=== PATIENT | female | born 1980 | race Hispanic/Latino ===

== ENCOUNTER 2018-07-11 21:36 | Emergency (ER) | payer BC ==
--- NOTE | 2018-07-11 22:42 | ED PDOC ---
Arrival/HPI <Sen Grande - Last Filed: 07/11/18 23:56> - History of Present Illness Narrative History of Present Illness (Text): This is a 38 year old female with PMH of panic attacks who presents with chest pain since yesterday, with palpitations for the past 5 days. Pain is described as a pressure, which was right sided yesterday, but left sided chest pain today. Pt states that it feels like a "pulled muscle." Pt has had shortness of breath for the past 5 days, described as feeling the need to catch her breath. SOB is not worse on exertion, and she states mostly happens when she is sitting. Pt states that she usually doesn't have chest pain with her panic attacks. Endorses starting a new job recently with increased stress. Pt denies fever, chills, abdominal pain, n/v/d, recent travel, car rides greater than 4 hours, leg pain or swelling. Pt is not on OCPs. She has been doing a keto diet for the past 15 days. PMD: Condo PMH: anxiety with panic attacks PSH: breast augmentation 15 years ago Meds: None Allx: NKDA Social hx: (+) social etoh, denies smoking, drug use Time/Duration: Other (1 day) Symptom Onset: Sudden Symptom Course: Worsening Quality: Pressure <Chuy Dumont - Last Filed: 07/12/18 00:12> - General Chief Complaint: Palpitations Time Seen by Provider: 07/11/18 21:47 Past Medical History - Provider Review Nursing Documentation Reviewed: Yes - Infectious Disease Hx of Infectious Diseases: None - Psychiatric Hx Substance Use: No - Surgical History Other/Comment: Breast augmentation - Anesthesia Hx Anesthesia: Yes Hx Anesthesia Reactions: No Hx Malignant Hyperthermia: No <Chuy Dumont - Last Filed: 07/12/18 00:12> Family/Social History - Physician Review Nursing Documentation Reviewed: Yes Family/Social History: Unknown Family HX Smoking Status: Never Smoked Hx Alcohol Use: Yes Frequency of alcohol use: Socially Hx Substance Use: No <Chuy Dumont - Last Filed: 07/12/18 00:12> Allergies/Home Meds <Sen Grande - Last Filed: 07/11/18 23:56> <Chuy Dumont - Last Filed: 07/12/18 00:12> Allergies/Adverse Reactions: Allergies No Known Allergies Allergy (Verified 07/11/18 22:01) Home Medications: Home Meds Medication Instructions Recorded Confirmed No Known Home Med 07/11/18 07/11/18 Review of Systems - Review of Systems Constitutional: Normal Eyes: Normal ENT: Normal Respiratory: SOB Cardiovascular: Chest Pain, Palpitations. absent: Edema, Calf Pain, CANNON Gastrointestinal: Normal Genitourinary Female: Normal Musculoskeletal: Normal Skin: Normal Neurological: Normal Endocrine: Normal Hemo/Lymphatic: Normal Psychiatric: Normal <TimChuy - Last Filed: 07/12/18 00:12> Physical Exam Vital Signs Temp Pulse Resp BP Pulse Ox 07/11/18 21:53 98.3 F 82 18 112/79 97 <Sen Grande - Last Filed: 07/11/18 23:56> Vital Signs Reviewed: Yes Vital Signs Temp Pulse Resp BP Pulse Ox 07/11/18 21:53 98.3 F 82 18 112/79 97 Temperature: Afebrile Blood Pressure: Normal Pulse: Regular Respiratory Rate: Normal Appearance: Positive for: Well-Appearing, Non-Toxic Pain Distress: None Mental Status: Positive for: Alert and Oriented X 3 - Systems Exam Head: Present: Atraumatic, Normocephalic Extroacular Muscles: Present: EOMI Mouth: Present: Moist Mucous Membranes Respiratory/Chest: Present: Clear to Auscultation Cardiovascular: Present: Regular Rate and Rhythm, Normal S1, S2. No: Murmurs, Irregular Rhythm, Tachycardic Abdomen: Present: Normal Bowel Sounds. No: Tenderness, Distention Upper Extremity: Present: Normal Inspection, NORMAL PULSES, Capillary Refill < 2s. No: Edema Lower Extremity: Present: Normal Inspection, NORMAL PULSES, Capillary Refill < 2 s. No: Edema, CALF TENDERNESS, Tenderness, Swelling Neurological: Present: GCS=15 Skin: Present: Warm, Dry, Normal Color Psychiatric: Present: Alert, Oriented x 3, Anxious <RobetrtracyChuy - Last Filed: 07/12/18 00:12> Medical Decision Making ED Course and Treatment: Impression: Pt seen and evaluated with medical policy specialist big data solutions architect. Aware and agree with HPI, clinical findings, plan, and management. Pt, whose past medical history includes panics attacks, presented for chest pain, palpitations. Plan: -- EKG -- Chest X-ray -- Labs, cardiac enzymes, D-dimer -- Reassess and disposition - Lab Interpretations Lab Results: 07/11/18 22:35 Lab Results 07/11/18 22:35: Sodium 139, Potassium 3.8, Chloride 102, Carbon Dioxide 27, Anion Gap 13, BUN 16, Creatinine 0.8, Est GFR ( Amer) > 60, Est GFR (Non- Af Amer) > 60, Random Glucose 85, Calcium 9.5, Phosphorus 4.3, Magnesium 1.8, Total Bilirubin 0.2, AST 32, ALT 40, Alkaline Phosphatase 52, Lactate Dehydrogenase 418, Total Creatine Kinase 77, Troponin I Pending, Total Protein 7.5, Albumin 4.6, Globulin 2.9, Albumin/Globulin Ratio 1.6 - RAD Interpretation Radiology Orders: 07/11/18 22:51 CXR [CHEST PORTABLE] [RAD] Stat <Sen Grande - Last Filed: 07/11/18 23:56> ED Course and Treatment: 07/11/18 22:46 CBC, CMP, cardiac iso, EKG, CXR, d dimer. Will re-eval. 07/12/18 00:09 On re-evaluation, pt reports that she is feeling better. Pt reports that once she was told that she wasn't having a heart attack she started to feel better. Pt is not tachycardic, not dyspneic, no chest pain at this time. I instructed the pt that keto diet, or any other fad diet, is not medically advised and that regular cardio and eating healthy will provide her with the resulst that she wants. Pt instructed to follow up with her PMD within 2 weeks. Return to ED if symptoms worsen. Pt understands and agrees with discharge plan. Reassessment Condition: Re-examined, Improved - RAD Interpretation Narrative RAD Interpretations (Text): 07/11/18 23:16 CXR shows no acute process; as read by ED attending Computed Tomography Technologist: ED Physician - EKG Interpretation EKG Interpretation (Text): 07/11/18 22:47 EKg shows NSR at 86, no STTW changes; NE is 136, QTc is 442; as read by ED attending Interpreted by ED Physician: Yes <Chuy Dumont - Last Filed: 07/12/18 00:12> - PA / HYDROGRAPHIC ENGINEER / Resident Statement / has reviewed & agrees with the documentation as recorded. / has examined the patient and agrees with the treatment plan. <Sen Grande - Last Filed: 07/11/18 23:56> Disposition/Present on Arrival <Sen Grande - Last Filed: 07/11/18 23:56> - Present on Arrival Any Indicators Present on Arrival: No History of DVT/PE: No History of Uncontrolled Diabetes: No Urinary Catheter: No History of Decub. Ulcer: No History Surgical Site Infection Following: None - Disposition Have Diagnosis and Disposition been Completed?: Yes Disposition Time: 00:11 Patient Plan: Discharge <Chuy Dumont - Last Filed: 07/12/18 00:12> - Disposition Diagnosis: Chest pain in adult, Anxiety Disposition: HOME/ ROUTINE Condition: STABLE Discharge Instructions (ExitCare): Chest Pain That Is Not Caused by the Heart (DC), Anxiety, Adult (DC) Forms: [employer] [facility] ([place])
[2018-07-11 23:01] VITALS: RESP 18; TEMP 98.3; BMI 25.4
[2018-07-11 23:23] LABS: ALB/GLOB RATIO 1.6 (1.1-1.8); ALBUMIN 4.6 g/dL (3.0-4.8); ALT/SGPT 40 U/L (7-56); AST/SGOT 32 U/L (14-36); BLOOD UREA NITROGEN 16 mg/dL (7-21); CALCIUM 9.5 mg/dL (8.4-10.5); GFR NON-AFRICAN AMERICAN > 60
[2018-07-11 23:30] LABS: BASO # 0.01 K/mm3 (0.0-2.0); BASO % 0.1 % (0.0-3.0); EOS # 0.1 (0.0-0.7); EOS % 1.6 % (1.5-5.0); GRAN # 4.45 (1.4-6.5); GRAN % 64.3 % (50.0-68.0); HEMOGLOBIN 13.9 g/dL (12.0-16.0); LYMPH % 29.5 % (22.0-35.0); MEAN CELL VOLUME 87.3 fl (80.0-105.0); MEAN CORPUSCULAR HEMOGLOBIN 29.3 pg (25.0-35.0); MEAN CORPUSCULAR HGB CONC 33.6 g/dl (31.0-37.0); MONO # 0.3 (0.1-0.6); MONO % 4.5 % (1.0-6.0); RBC 4.74 10^6/uL (3.5-6.1); RED CELL DISTRIBUTION WIDTH 12.3 % (11.5-14.5); WHITE BLOOD COUNT 6.9 10^3/uL (4.5-11.0)
[2018-07-11 23:40] LABS: TROPONIN I < 0.01 ng/mL
[2018-07-11 23:43] LABS: BARBITURATES, UR NEGATIVE (NEGATIVE); BENZODIAZEPINES, UR NEGATIVE (NEGATIVE); OPIATES, UR NEGATIVE (NEGATIVE); PHENCYCLIDINE, UR NEGATIVE (NEGATIVE)
[2018-07-12] MEDS ORDERED: Sodium Chloride 0.9% 1,000 ML IV STA (00:02)
[2018-07-12 00:19] VITALS: BP 107/54; PULSE 73; O2SAT 100
--- NOTE | 2018-07-12 09:55 | RAD ---
Date of service: 07/11/2018 HISTORY: chest pain COMPARISON: No prior. FINDINGS: LUNGS: No active pulmonary disease. PLEURA: No significant pleural effusion identified, no pneumothorax apparent. CARDIOVASCULAR: No aortic atherosclerotic calcification present. Normal cardiac size. No pulmonary vascular congestion. OSSEOUS STRUCTURES: No significant abnormalities. VISUALIZED UPPER ABDOMEN: Normal. OTHER FINDINGS: None. IMPRESSION: No active disease.
--- NOTE | 2018-07-12 12:18 | CARD ---
APPROVED REPORT Date of service: 07/11/2018 EKG Measurement Heart [id number] <Conclusion> Sinus rhythm with premature ventricular complex Otherwise normal ECG
== END 2018-07-12 00:14 | disposition home or self-care (01) ==
LOC: ED 21:36
DX: R07.9 Chest pain, unspecified (principal); F41.9 Anxiety disorder, unspecified
CPT/HCPCS: 71045; 80053; 82550; 83615; 83735; 84100; 84484; 84703; 85025; 85378; 93005; 99283; G0480